=== PATIENT | male | born 1965 | race Caucasian/White ===

== ENCOUNTER 2017-04-23 10:50 | Observation (INO) | payer BC ==
[2017-04-21 16:15] LABS: HEMATOCRIT 44.1 % (40.0-51.0); HEMOGLOBIN 15.1 g/dL (13.6-17.8)
--- NOTE | ~2017-04-23 | PREOPHP ---
PreOp History and Physical [place] [id number] [facility] [place] [address] NAME: MARGARET HALL : 69 STATUS : REG [facility]#: [id number] AGE: 52 ADM/REG DATE : 04/23/17 MR#: [id number] REPORT SERV DATE: 04/23/17 DICTATED BY: SEVEN DURBIN DATE: 04/23/17 REPORT STATUS : Draft TRANSCRIBED BY: ASHWIN DATE: 04/23/17 CHIEF COMPLAINT: Neck pain and left upper extremity pain and paresthesias. HISTORY OF PRESENT ILLNESS: The patient is a 52-year-old with intractable neck pain, left upper extremity pain and paresthesias, and weakness. He has failed conservative treatment and after discussion of risks and benefits and neurologic decline, he elected to proceed with surgical intervention. REVIEW OF SYSTEMS: He denies chest pain, shortness of breath, and bowel or bladder changes. ALLERGIES: ALEVE. HOME MEDICATIONS: Include Benadryl and Flexeril. PAST MEDICAL HISTORY: Includes lupus and migraine headaches. FAMILY HISTORY: Noncontributory. PHYSICAL EXAMINATION: VITAL SIGNS: Height 5 feet 7 inches. Weight 180. BMI 28.2. GENERAL: The patient is healthy appearing. No acute distress. PSYCHIATRIC: Alert and oriented x3. Normal mood and affect. Gait is within normal limits. VASCULAR: No extremity swelling. SPINE: Decreased cervical motion. HEART: Regular rate and rhythm. LUNGS: Clear to auscultation. ABDOMEN: Soft, nontender, and nondistended with good bowel sounds. BREASTS: Deferred. RECTAL: Deferred. NEUROLOGIC: Strength is 4/5 for the left wrist flexors and extensors and intrinsics. Other motion is 5/5 bilaterally. Spurling's is positive on the left. IMAGING: I have reviewed the MRI scan. He does have C5 through C7 disk disease, disc herniation with stenosis, and nerve root compression. ASSESSMENT: C5-C7 disk disease and stenosis with nerve compression, cervical radiculopathy, failed conservative treatment including medications and epidural injections. PLAN: The patient presents today for surgical intervention. Consent was obtained. All questions were answered and he is ready to proceed with surgery. BRIGETTE/ASHWIN Seven Durbin DO PreOp History and Physical [address] [address] NAME: MARGARET HALL : 69 STATUS : REG [facility] PAT#: [id number] AGE: 52 ADM/REG DATE : 04/23/17 MR#: [id number] REPORT SERV DATE: 04/23/17 DICTATED BY: SEVEN DURBIN DATE: 04/23/17 REPORT STATUS : Draft TRANSCRIBED BY: MODL DATE: 04/23/17 / [id number] CC: DO ANITA Rojas
--- NOTE | ~2017-04-23 | OP ---
Record Of Operation [facility] [address] [place]. [address] NAME: MARGARET HALL : 69 STATUS : ADM Jacky PAT#: [id number] AGE: 52 ADM/REG DATE : 04/23/17 MR#: [id number] REPORT SERV DATE: 04/23/17 DICTATED BY: SEVEN HERNANDEZ DATE: 04/23/17 REPORT STATUS : Draft TRANSCRIBED BY: MODL DATE: 04/23/17 DATE OF PROCEDURE: 04/23/2017 PREOPERATIVE DIAGNOSIS: C5-6, C6-7 disk disease and stenosis with nerve compression and cervical radiculopathy. POSTOPERATIVE DIAGNOSIS: C5-6, C6-7 disk disease and stenosis with nerve compression and cervical radiculopathy. PROCEDURE: 1. Anterior cervical diskectomy and fusion, C5-6, C6-7. 2. Placement of Medtronic PEEK interbody spacer, C5-6, C6-7. 3. Anterior cervical plate from [employer], C5-C7. 4. Allograft bone matrix. 5. Neuromonitoring. 6. Operative microscope. SURGEON: Seven Hernandez DO. ANESTHESIA: General. ESTIMATED BLOOD LOSS: 10 mL. COMPLICATIONS: None. INDICATIONS: The patient is a 52-year-old with intractable neck and left upper extremity pain, paresthesias, and weakness. He failed conservative treatment. After discussion of risks and benefits and progressive neurologic decline, he elected to undergo a surgical intervention. DESCRIPTION OF PROCEDURE: I identified the patient in the holding area and consent was obtained. Went to the operating room. Underwent general anesthesia with endotracheal intubation. Prepped and draped in the usual sterile fashion. Operative safety pause was performed, then we proceeded with surgery. A transverse incision was made over the C6 level, taken down through the platysma. Dissection carried out down to the anterior aspect of the spine. Longus colli elevated from C5-C7. Self-retaining retractors were placed. Robinson pin was placed at C6 and verified with lateral fluoroscopic image. An additional pin was placed at C7 distraction applied. Operative microscope was brought in. A knife was used to perform an annulotomy. Free disk material removed with pituitary. Anterior osteophytes removed with Kerrison. Posterior osteophytes were removed with a jovita bur. Foraminotomies performed with Kerrison. Endplates were prepared with curettes, rasp, and a cutting bur. Trial spacers implanted followed by a Medtronic PEEK interbody spacer with allograft bone matrix. This was repeated again at the C5-C6 level. Robinson pins were then removed. Anterior cervical plate from [employer] was placed from C5-C7. Screws were placed, final tightened. Locking mechanisms engaged. Final AP and lateral images were obtained. Irrigation performed. Hemostasis achieved. Subplatysmal drain placed. Layered closure Record Of Operation [address] [address] NAME: MARGARET HALL : 69 STATUS : ADM Jacky PAT#: [id number] AGE: 52 ADM/REG DATE : 04/23/17 MR#: [id number] REPORT SERV DATE: 04/23/17 DICTATED BY: SEVEN HERNANDEZ DATE: 04/23/17 REPORT STATUS : Draft TRANSCRIBED BY: MODL DATE: 04/23/17 performed. Sterile dressings applied. The patient was awoken and extubated and taken to the recovery room in stable condition. OPERATIVE FINDINGS: C5-7 disk disease and stenosis. No sustained neuromonitoring alerts. BRIGETTE/ASHWIN Seven Hernandez DO / [id number] CC: DO ANITA Rojas
[~2017-04-23 10:50] MED LIST: DENIES HOME MEDS; FLEX PO; NORCO1 TA2 PO; PCET PO; PR25 PO
[2017-04-24 04:07] LABS: BUN (BLOOD UREA NITROGEN) 9 MG/DL (6-23); CHLORIDE, SERUM 107 MMOL/L (96-112); CO2 (CARBON DIOXIDE) 28 MMOL/L (24-34); CREATININE 0.89 MG/DL (0.70-1.30); GFR AFRICAN AMERICAN 116 ML/MIN (>=60); GFR NON AFRICAN AMERICAN 100 ML/MIN (>=60); GLUCOSE, SERUM 146 MG/DL (60-99); POTASSIUM, SERUM 4.4 MMOL/L (3.5-5.3); SODIUM, SERUM 142 MMOL/L (135-148)
[2017-04-24] MEDS ORDERED: PCET PO (15:20)
== END 2017-04-24 16:09 | disposition home or self-care (01) ==
LOC: SDC 10:50 → 3SO 15:35
PROVIDERS: Orthopaedic Surgery
PROC: 0RG20A0 Fusion of 2 or more Cervical Vertebral Joints with Interbody Fusion Device, Anterior Approach, Anterior Column, Open Approach (ICD-10-PCS; principal; 2017-04-23 11:15)
PROC: 0RG20K0 Fusion of 2 or more Cervical Vertebral Joints with Nonautologous Tissue Substitute, Anterior Approach, Anterior Column, Open Approach (ICD-10-PCS; 2017-04-23 11:15)
DX: M50.122 Cervical disc disorder at C5-C6 level with radiculopathy (principal); M50.123 Cervical disc disorder at C6-C7 level with radiculopathy; M48.02 Spinal stenosis, cervical region; Z88.8 Allergy status to other drugs, medicaments and biological substances
CPT/HCPCS: 80048; 82962; 85014; 85018; 87641; 88304; 88311; 93005; 96374; 96375; 96376; 97161-GP; A9270-GY; C1713; G0378; J0690; J2250; J2270; J2405; J2550; J2710; J3010; J3370